=== PATIENT | male | born 1970 | race Caucasian/White ===

== ENCOUNTER 2021-03-01 12:08 | Inpatient (IN) | payer MEDICAID, SELFPAY ==
[2021-03-01] MEDS ORDERED: Midazolam HCl 2 mg/2 ml Vial ONE (12:30)
[2021-03-01] MEDS ORDERED: Propofol 1,000 MG/100 ML VIAL IV ONE ×2 (12:31→15:28)
[2021-03-01] MEDS ORDERED: Acetaminophen 650 MG Suppository ONE (12:45)
[2021-03-01] MEDS ORDERED: Ketorolac Tromethamine 30 MG/ML VIAL ONE (12:46)
[2021-03-01 13:26] LABS: #Monocytes 0.5 10x3/uL (0.0-1.1); #Neutrophils 5.7 10x3/uL (1.5-8.4); %Basophils 0.3 % (0.0-2.0); %Lymphocytes 11.7 % (18.0-47.0); %Monocytes 6.6 % (0.0-10.0); %Neutrophils 79.6 % (40.0-75.0); Mean Corpuscular HGB CONC 33.2 g/dL (32.0-36.0); Mean Corpuscular Hemoglobin 27.9 pg (27.0-33.0); Mean Platelet Volume 10.3 fl (7.4-10.4); Platelet Count 238 10x3/uL (150-450); RBC Distribution Width 13.8 % (11.5-14.5); Red Blood Cell (RBC) Count 5.38 10x6/uL (4.32-5.72); White Blood Cell (WBC) Count 7.1 10x3/uL (3.5-10.5)
[2021-03-01 13:32] LABS: SARS-CoV-2 NAA Rapid Test DETECTED (NotDetected)
[2021-03-01 13:38] LABS: Actual Bicarbonate (HCO3a) 24.4 mEq/L (22-28); Base Excess (BEa) 1.3 mEq/L (-2.0 to +3.0); CO2 Tension 34.4 mmHg (35.0-45.0); Calcium, Ionized (arterial) 0.95 mmol/L (1.12-1.30); Carboxyhemoglobin (COHb) 0.9 gm% (0.0-3.0); Hemoglobin (Hb) 14.4 g/dL (14.0-18.0); Potassium - ABG Lab 4.5 mmol/L (3.70-5.30); Puncture Site RRA; pH, Arterial 7.47 (7.35-7.45)
[2021-03-01 13:40] LABS: ALT (SGPT) 21 U/L (8-55); AST (SGOT) 44 U/L (5-34); Albumin 3.3 g/dL (3.5-5.0); Alkaline Phosphatase 75 U/L (40-110); Anion Gap 21 mmol/L (10-20); BUN (Urea Nitrogen) 24 mg/dL (8.9-20.6); Bilirubin, Total 0.6 mg/dL (0.2-1.2); Calc. Creatinine Clearance 0 mL/min (70-130); Calcium 8.9 mg/dL (7.8-10.44); Carbon Dioxide 28 mmol/L (22-29); Chloride 85 mmol/L (98-107); Globulin 3.7 g/dL (2.4-3.5); Glucose 369 mg/dL (70-105); Magnesium 2.2 mg/dL (1.6-2.6); Potassium 4.6 mmol/L (3.5-5.1); Sodium 129 mmol/L (136-145)
[2021-03-01] MEDS ORDERED: Norepinephrine 8 MG/0.9% NS 250 ML ONE (13:52)
[2021-03-01] MEDS ORDERED: Rocuronium Bromide 10 MG/ML (10ML VIAL) ONE (14:21)
[2021-03-01] MEDS ORDERED: Acetaminophen 650 MG Suppository PR PRN (15:01)
[2021-03-01] MEDS ORDERED: Ondansetron PF 4 MG/2 ML Vial IVP PRN (15:01)
[2021-03-01] MEDS ORDERED: Norepinephrine 8 MG/0.9% NS 250 ML IVPB SCH (15:15)
[2021-03-01] MEDS ORDERED: Ventilator Sedation Protocol 1 EACH FS ONE (15:19)
[2021-03-01] MEDS ORDERED: Dextrose 50% Abboject 50 ML SYRINGE SLOW IVP PRN (15:22)
[2021-03-01] MEDS ORDERED: Dextrose 5% in Water 1,000 ML IV PRN (15:22)
[2021-03-01] MEDS ORDERED: HumaLOG 300 UNITS/3 ML VIAL SC PRN ×2 (15:22)
[2021-03-01] MEDS ORDERED: Lantus 1000 UNITS/10 ML VIAL SC SCH (15:30)
[2021-03-01] MEDS ORDERED: Propofol BOLUS 1,000 MG/100 ML VIAL IV PRN (16:00)
[2021-03-01] MEDS ORDERED: Propofol 1,000 MG/100 ML VIAL IV PRN (16:00)
[2021-03-01] MEDS ORDERED: DISCONTINUE PREVIOUS NARCOTIC PAIN MEDICATIONS AND BENZODIAZEPINES FS SCH (16:00)
[2021-03-01] MEDS ORDERED: Morphine 2 MG/ML VIAL SLOW IVP PRN (16:00)
[2021-03-01] MEDS ORDERED: Fentanyl BOLUS 250 ML IVPB PRN (16:00)
[2021-03-01 16:15] LABS: Anion Gap 21 mmol/L (10-20); BUN (Urea Nitrogen) 28 mg/dL (8.9-20.6); Calc. Creatinine Clearance 0 mL/min (70-130); Calcium 7.3 mg/dL (7.8-10.44); Carbon Dioxide 22 mmol/L (22-29); Chloride 93 mmol/L (98-107); Glucose 426 mg/dL (70-105); Potassium 4.9 mmol/L (3.5-5.1); Sodium 131 mmol/L (136-145)
[2021-03-01 16:18] LABS: Lactic Acid 1.8 mmol/L (0.5-2.2)
[2021-03-01 16:34] LABS: Actual Bicarbonate (HCO3a) 22.8 mEq/L (22-28); Base Excess (BEa) -4.7 mEq/L (-2.0 to +3.0); CO2 Tension 51.6 mmHg (35.0-45.0); Calcium, Ionized (arterial) 1.07 mmol/L (1.12-1.30); Carboxyhemoglobin (COHb) 0.6 gm% (0.0-3.0); Hemoglobin (Hb) 14.7 g/dL (14.0-18.0); O2 Tension (PaO2), arterial 71.8 mmHg (80.0-100.0); Potassium - ABG Lab 4.9 mmol/L (3.70-5.30); Puncture Site LRA; pH, Arterial 7.26 (7.35-7.45)
[2021-03-01] MEDS: INSULIN REGULAR IN 0.9 % NACL 100 UNIT in Premix Bag 1 BAG IVPB SCH (16:43)
[2021-03-01] MEDS ORDERED: REMDESIVIR 200 MG in Sodium Chloride 0.9% 250 ML 210 ML IV SCH (16:45)
[2021-03-01] MEDS: Vecuronium Bromide 50 MG in Sodium Chloride 0.9% 250 ML 250 ML IV SCH (16:49)
[2021-03-01] MEDS ORDERED: TOCILIZUMAB IV SCH (17:45)
[2021-03-01] MEDS ORDERED: SODIUM CHLORIDE 0.9% IV SCH (17:45)
[2021-03-01 18:48] LABS: Anion Gap 21 mmol/L (10-20); BUN (Urea Nitrogen) 29 mg/dL (8.9-20.6); Calc. Creatinine Clearance 90 mL/min (70-130); Calcium 7.7 mg/dL (7.8-10.44); Carbon Dioxide 22 mmol/L (22-29); Chloride 95 mmol/L (98-107); Glucose 416 mg/dL (70-105); Potassium 4.3 mmol/L (3.5-5.1); Sodium 134 mmol/L (136-145)
[2021-03-01] MEDS ORDERED: Tocilizumab 800 MG in Sodium Chloride 0.9% 100 ML IV SCH (20:00)
[2021-03-01] MEDS: Famotidine/PF 20 mg/2ml Vial SLOW IVP SCH (20:58)
[2021-03-01] MEDS: Enoxaparin Sodium 120 MG/0.8 ML SYRINGE SC SCH (20:58)
[2021-03-01] MEDS: Dexamethasone 10 MG/ML VIAL SLOW IVP SCH (21:17)
[2021-03-02] MEDS: Vecuronium Bromide 50 MG in Sodium Chloride 0.9% 250 ML 250 ML IV SCH ×3 (01:34→20:37)
[2021-03-02] MEDS: INSULIN REGULAR IN 0.9 % NACL 100 UNIT in Premix Bag 1 BAG IVPB SCH (03:50)
[2021-03-02 04:38] LABS: ALT (SGPT) 24 U/L (8-55); AST (SGOT) 41 U/L (5-34); Albumin 2.9 g/dL (3.5-5.0); Alkaline Phosphatase 62 U/L (40-110); Anion Gap 12 mmol/L (10-20); BUN (Urea Nitrogen) 27 mg/dL (8.9-20.6); Bilirubin, Total 0.3 mg/dL (0.2-1.2); Calc. Creatinine Clearance 150 mL/min (70-130); Calcium 8.1 mg/dL (7.8-10.44); Carbon Dioxide 30 mmol/L (22-29); Chloride 99 mmol/L (98-107); Globulin 2.8 g/dL (2.4-3.5); Glucose 146 mg/dL (70-105); Protein, Total 5.7 g/dL (6.0-8.3); Sodium 137 mmol/L (136-145)
[2021-03-02 04:46] LABS: #Monocytes 0.4 10x3/uL (0.0-1.1); %Basophils 0.5 % (0.0-2.0); %Lymphocytes 10.6 % (18.0-47.0); %Monocytes 4.6 % (0.0-10.0); %Neutrophils 81.6 % (40.0-75.0); Hemoglobin 14.5 g/dL (13.5-17.5); Mean Corpuscular HGB CONC 33.1 g/dL (32.0-36.0); Mean Corpuscular Hemoglobin 27.7 pg (27.0-33.0); Mean Corpuscular Volume 83.7 fl (81.2-95.1); Mean Platelet Volume 9.7 fl (7.4-10.4); Platelet Count 258 10x3/uL (150-450); RBC Distribution Width 13.9 % (11.5-14.5); Red Blood Cell (RBC) Count 5.23 10x6/uL (4.32-5.72); White Blood Cell (WBC) Count 8.6 10x3/uL (3.5-10.5)
[2021-03-02 08:09] LABS: Actual Bicarbonate (HCO3a) 30.8 mEq/L (22-28); Base Excess (BEa) 4.1 mEq/L (-2.0 to +3.0); CO2 Tension 54.2 mmHg (35.0-45.0); Carboxyhemoglobin (COHb) 0.3 gm% (0.0-3.0); Hemoglobin (Hb) 14.5 g/dL (14.0-18.0); Potassium - ABG Lab 4.2 mmol/L (3.70-5.30); Puncture Site LRA; pH, Arterial 7.37 (7.35-7.45)
[2021-03-02] MEDS: Enoxaparin Sodium 120 MG/0.8 ML SYRINGE SC SCH ×2 (08:13→20:37)
[2021-03-02] MEDS: Famotidine/PF 20 mg/2ml Vial SLOW IVP SCH ×2 (08:14→20:37)
[2021-03-02] MEDS: Aspirin Chewable 81 MG TAB PO SCH (08:14)
[2021-03-02] MEDS: fentaNYL Citrate-0.9 % NaCl/PF 100 ML IVPB SCH ×2 (09:14→22:08)
[2021-03-02] MEDS ORDERED: Dexamethasone 20 MG/5 ML VIAL SLOW IVP SCH (10:00)
[2021-03-02] MEDS ORDERED: Dextrose 5% in Water 1,000 ML IV PRN (10:44)
[2021-03-02] MEDS ORDERED: Dextrose 50% Abboject 50 ML SYRINGE SLOW IVP PRN (10:44)
[2021-03-02] MEDS ORDERED: Lantus 1000 UNITS/10 ML VIAL SC SCH ×2 (10:45→21:00)
[2021-03-02] MEDS: HumaLOG 300 UNITS/3 ML VIAL SC PRN (16:41)
[2021-03-02] MEDS ORDERED: REMDESIVIR 100 MG in Sodium Chloride 0.9% 250 ML 230 ML IV SCH (16:45)
[2021-03-02 16:46] LABS: Actual Bicarbonate (HCO3a) 27.2 mEq/L (22-28); Base Excess (BEa) 0.5 mEq/L (-2.0 to +3.0); Calcium, Ionized (arterial) 1.12 mmol/L (1.12-1.30); Carboxyhemoglobin (COHb) 0.4 gm% (0.0-3.0); Hemoglobin (Hb) 14.9 g/dL (14.0-18.0); O2 Tension (PaO2), arterial 60.7 mmHg (80.0-100.0); Potassium - ABG Lab 4.8 mmol/L (3.70-5.30); Puncture Site RRA; pH, Arterial 7.34 (7.35-7.45)
[2021-03-02] MEDS: Dexamethasone 10 MG/ML VIAL SLOW IVP SCH (19:49)
[2021-03-02] MEDS: Dexamethasone 20 MG/5 ML VIAL SLOW IVP SCH (20:37)
[2021-03-03 04:06] LABS: Hemoglobin 13.9 g/dL (13.5-17.5); Mean Corpuscular HGB CONC 31.8 g/dL (32.0-36.0); Mean Corpuscular Hemoglobin 28.1 pg (27.0-33.0); Mean Corpuscular Volume 88.5 fl (81.2-95.1); Platelet Count 282 10x3/uL (150-450); RBC Distribution Width 14.2 % (11.5-14.5); Red Blood Cell (RBC) Count 4.94 10x6/uL (4.32-5.72); White Blood Cell (WBC) Count 11.3 10x3/uL (3.5-10.5)
[2021-03-03 04:19] LABS: ALT (SGPT) 26 U/L (8-55); AST (SGOT) 32 U/L (5-34); Albumin 2.7 g/dL (3.5-5.0); Alkaline Phosphatase 61 U/L (40-110); Anion Gap 15 mmol/L (10-20); BUN (Urea Nitrogen) 36 mg/dL (8.9-20.6); Bilirubin, Total 0.3 mg/dL (0.2-1.2); Calc. Creatinine Clearance 109 mL/min (70-130); Calcium 8.5 mg/dL (7.8-10.44); Carbon Dioxide 30 mmol/L (22-29); Chloride 101 mmol/L (98-107); Glucose 388 mg/dL (70-105); Potassium 5.2 mmol/L (3.5-5.1); Protein, Total 5.7 g/dL (6.0-8.3); Sodium 141 mmol/L (136-145)
[2021-03-03 04:30] LABS: MDiff Complete? YES
[2021-03-03 04:35] LABS: Band 15 % (5-11); Lymphocytes 1 % (21-51); Monocytes 5 % (0-10); Neutrophil 79 % (42-75)
[2021-03-03 04:36] LABS: Nucleated RBC 2 % (0); Toxic Granulation SLIGHT
[2021-03-03] MEDS: HumaLOG 300 UNITS/3 ML VIAL SC PRN ×2 (05:26→11:15)
[2021-03-03] MEDS: Famotidine/PF 20 mg/2ml Vial SLOW IVP SCH ×2 (08:19→20:21)
[2021-03-03] MEDS: Dexamethasone 20 MG/5 ML VIAL SLOW IVP SCH (08:19)
[2021-03-03] MEDS: Enoxaparin Sodium 120 MG/0.8 ML SYRINGE SC SCH ×2 (08:19→20:20)
[2021-03-03] MEDS: Aspirin Chewable 81 MG TAB PO SCH (08:20)
[2021-03-03 08:35] LABS: Actual Bicarbonate (HCO3a) 30.7 mEq/L (22-28); Base Excess (BEa) 4.2 mEq/L (-2.0 to +3.0); CO2 Tension 52.9 mmHg (35.0-45.0); Calcium, Ionized (arterial) 1.13 mmol/L (1.12-1.30); Carboxyhemoglobin (COHb) 0.2 gm% (0.0-3.0); Hemoglobin (Hb) 14.8 g/dL (14.0-18.0); O2 Tension (PaO2), arterial 87.3 mmHg (80.0-100.0); Puncture Site RRA; pH, Arterial 7.38 (7.35-7.45)
[2021-03-03 08:39] LABS: ALV-art Gradient 274.375 mmHg (0-20)
[2021-03-03] MEDS: fentaNYL Citrate-0.9 % NaCl/PF 100 ML IVPB SCH ×2 (08:48→15:16)
[2021-03-03] MEDS: Vecuronium Bromide 50 MG in Sodium Chloride 0.9% 250 ML 250 ML IV SCH ×2 (08:48→17:57)
[2021-03-03] MEDS ORDERED: Lantus 1000 UNITS/10 ML VIAL SC SCH (09:00)
[2021-03-03] MEDS: Cefepime 1 GM in Sodium Chloride 0.9% 100 ML IVPB SCH (11:59)
[2021-03-03] MEDS: INSULIN REGULAR IN 0.9 % NACL 100 UNIT in Premix Bag 1 BAG IVPB SCH (16:12)
[2021-03-03 16:22] LABS: Actual Bicarbonate (HCO3a) 32.9 mEq/L (22-28); Base Excess (BEa) 7.6 mEq/L (-2.0 to +3.0); CO2 Tension 47.8 mmHg (35.0-45.0); Calcium, Ionized (arterial) 1.13 mmol/L (1.12-1.30); Carboxyhemoglobin (COHb) 0.3 gm% (0.0-3.0); Hemoglobin (Hb) 14.9 g/dL (14.0-18.0); O2 Tension (PaO2), arterial 70.1 mmHg (80.0-100.0); Potassium - ABG Lab 4.8 mmol/L (3.70-5.30); Puncture Site RRA; pH, Arterial 7.46 (7.35-7.45)
[2021-03-04] MEDS: Cefepime 1 GM in Sodium Chloride 0.9% 100 ML IVPB SCH ×3 (01:17→22:18)
[2021-03-04] MEDS: Vecuronium Bromide 50 MG in Sodium Chloride 0.9% 250 ML 250 ML IV SCH ×2 (02:59→17:45)
[2021-03-04] MEDS: INSULIN REGULAR IN 0.9 % NACL 100 UNIT in Premix Bag 1 BAG IVPB SCH (03:07)
[2021-03-04] MEDS: fentaNYL Citrate-0.9 % NaCl/PF 100 ML IVPB SCH ×2 (03:36→13:01)
[2021-03-04 05:53] LABS: ALT (SGPT) 27 U/L (8-55); AST (SGOT) 42 U/L (5-34); Albumin 2.8 g/dL (3.5-5.0); Alkaline Phosphatase 60 U/L (40-110); Anion Gap 11 mmol/L (10-20); BUN (Urea Nitrogen) 38 mg/dL (8.9-20.6); Bilirubin, Total 0.4 mg/dL (0.2-1.2); Calc. Creatinine Clearance 102 mL/min (70-130); Calcium 8.6 mg/dL (7.8-10.44); Carbon Dioxide 34 mmol/L (22-29); Chloride 112 mmol/L (98-107); Globulin 2.3 g/dL (2.4-3.5); Glucose 131 mg/dL (70-105); Potassium 4.7 mmol/L (3.5-5.1); Protein, Total 5.1 g/dL (6.0-8.3); Sodium 152 mmol/L (136-145)
[2021-03-04] MEDS: Aspirin Chewable 81 MG TAB PO SCH (08:06)
[2021-03-04] MEDS: Dexamethasone 20 MG/5 ML VIAL SLOW IVP SCH (08:08)
[2021-03-04] MEDS: Acetaminophen 325 MG TAB PO PRN ×2 (08:08→12:53)
[2021-03-04] MEDS: Enoxaparin Sodium 120 MG/0.8 ML SYRINGE SC SCH ×2 (08:09→20:14)
[2021-03-04 08:13] LABS: Actual Bicarbonate (HCO3a) 31.3 mEq/L (22-28); Base Excess (BEa) 7.5 mEq/L (-2.0 to +3.0); Calcium, Ionized (arterial) 1.11 mmol/L (1.12-1.30); Carboxyhemoglobin (COHb) 0.7 gm% (0.0-3.0); Hemoglobin (Hb) 14.9 g/dL (14.0-18.0); O2 Tension (PaO2), arterial 51.1 mmHg (80.0-100.0); Potassium - ABG Lab 4.5 mmol/L (3.70-5.30); Puncture Site RRA
[2021-03-04] MEDS: Famotidine/PF 20 mg/2ml Vial SLOW IVP SCH ×2 (09:00→20:14)
[2021-03-04] MEDS ORDERED: Furosemide 40 MG/4 ML VIAL SLOW IVP SCH (12:00)
[2021-03-05] MEDS: fentaNYL Citrate-0.9 % NaCl/PF 100 ML IVPB SCH ×3 (00:15→22:03)
[2021-03-05] MEDS: Vecuronium Bromide 50 MG in Sodium Chloride 0.9% 250 ML 250 ML IV SCH ×2 (00:16→09:16)
[2021-03-05] MEDS: INSULIN REGULAR IN 0.9 % NACL 100 UNIT in Premix Bag 1 BAG IVPB SCH (01:09)
[2021-03-05 05:27] LABS: ALT (SGPT) 23 U/L (8-55); AST (SGOT) 28 U/L (5-34); Albumin 2.8 g/dL (3.5-5.0); Alkaline Phosphatase 61 U/L (40-110); Anion Gap 14 mmol/L (10-20); BUN (Urea Nitrogen) 42 mg/dL (8.9-20.6); Bilirubin, Total 0.5 mg/dL (0.2-1.2); Calc. Creatinine Clearance 129 mL/min (70-130); Calcium 8.5 mg/dL (7.8-10.44); Carbon Dioxide 32 mmol/L (22-29); Chloride 108 mmol/L (98-107); Globulin 2.6 g/dL (2.4-3.5); Glucose 177 mg/dL (70-105); Potassium 4.5 mmol/L (3.5-5.1); Protein, Total 5.4 g/dL (6.0-8.3); Sodium 149 mmol/L (136-145)
[2021-03-05 08:09] LABS: Actual Bicarbonate (HCO3a) 34.7 mEq/L (22-28); CO2 Tension 51.2 mmHg (35.0-45.0); Calcium, Ionized (arterial) 1.16 mmol/L (1.12-1.30); Carboxyhemoglobin (COHb) 0.3 gm% (0.0-3.0); Hemoglobin (Hb) 14.5 g/dL (14.0-18.0); O2 Tension (PaO2), arterial 57.9 mmHg (80.0-100.0); Potassium - ABG Lab 4.3 mmol/L (3.70-5.30); Puncture Site RRA; pH, Arterial 7.45 (7.35-7.45)
[2021-03-05] MEDS: Famotidine/PF 20 mg/2ml Vial SLOW IVP SCH ×2 (08:34→20:39)
[2021-03-05] MEDS: Dexamethasone 20 MG/5 ML VIAL SLOW IVP SCH (08:34)
[2021-03-05] MEDS: Aspirin Chewable 81 MG TAB PO SCH (08:34)
[2021-03-05] MEDS: Enoxaparin Sodium 120 MG/0.8 ML SYRINGE SC SCH ×2 (08:35→20:39)
[2021-03-05] MEDS: Cefepime 1 GM in Sodium Chloride 0.9% 100 ML IVPB SCH (11:42)
[2021-03-05] MEDS ORDERED: Dextrose 5% in Water 1,000 ML IV PRN (13:00)
[2021-03-05] MEDS ORDERED: Dextrose 50% Abboject 50 ML SYRINGE IVP PRN (13:00)
[2021-03-05] MEDS: HumaLOG 300 UNITS/3 ML VIAL SC PRN ×3 (13:26→20:39)
[2021-03-05] MEDS: Acetaminophen 325 MG TAB PO PRN (20:46)
[2021-03-06] MEDS: Cefepime 1 GM in Sodium Chloride 0.9% 100 ML IVPB SCH ×2 (00:12→10:55)
[2021-03-06] MEDS: HumaLOG 300 UNITS/3 ML VIAL SC PRN ×6 (00:21→20:27)
[2021-03-06] MEDS: Acetaminophen 325 MG TAB PO PRN ×4 (04:49→20:29)
[2021-03-06 05:10] LABS: #Monocytes 0.8 10x3/uL (0.0-1.1); #Neutrophils 7.1 10x3/uL (1.5-8.4); %Basophils 0.3 % (0.0-2.0); %Monocytes 8.6 % (0.0-10.0); %Neutrophils 76.3 % (40.0-75.0); Hemoglobin 14.2 g/dL (13.5-17.5); Mean Corpuscular HGB CONC 30.4 g/dL (32.0-36.0); Mean Corpuscular Hemoglobin 28.3 pg (27.0-33.0); Mean Corpuscular Volume 93.2 fl (81.2-95.1); Platelet Count 247 10x3/uL (150-450); RBC Distribution Width 14.7 % (11.5-14.5); Red Blood Cell (RBC) Count 5.01 10x6/uL (4.32-5.72); White Blood Cell (WBC) Count 9.3 10x3/uL (3.5-10.5)
[2021-03-06 05:12] LABS: ALT (SGPT) 22 U/L (8-55); AST (SGOT) 28 U/L (5-34); Albumin 2.8 g/dL (3.5-5.0); Alkaline Phosphatase 58 U/L (40-110); Anion Gap 12 mmol/L (10-20); BUN (Urea Nitrogen) 39 mg/dL (8.9-20.6); Bilirubin, Total 0.6 mg/dL (0.2-1.2); Calc. Creatinine Clearance 113 mL/min (70-130); Calcium 9.2 mg/dL (7.8-10.44); Carbon Dioxide 37 mmol/L (22-29); Chloride 105 mmol/L (98-107); Globulin 2.8 g/dL (2.4-3.5); Glucose 277 mg/dL (70-105); Potassium 4.7 mmol/L (3.5-5.1); Protein, Total 5.6 g/dL (6.0-8.3); Sodium 149 mmol/L (136-145)
[2021-03-06] MEDS: fentaNYL Citrate-0.9 % NaCl/PF 100 ML IVPB SCH ×2 (06:00→12:42)
[2021-03-06] MEDS: Enoxaparin Sodium 120 MG/0.8 ML SYRINGE SC SCH ×2 (08:07→20:13)
[2021-03-06] MEDS: Dexamethasone 20 MG/5 ML VIAL SLOW IVP SCH (08:08)
[2021-03-06] MEDS: Aspirin Chewable 81 MG TAB PO SCH (08:08)
[2021-03-06] MEDS: Famotidine/PF 20 mg/2ml Vial SLOW IVP SCH ×2 (08:08→20:14)
[2021-03-06 08:25] LABS: Actual Bicarbonate (HCO3a) 36.5 mEq/L (22-28); Base Excess (BEa) 11.1 mEq/L (-2.0 to +3.0); Calcium, Ionized (arterial) 1.11 mmol/L (1.12-1.30); Hemoglobin (Hb) 15.2 g/dL (14.0-18.0); O2 Tension (PaO2), arterial 49.2 mmHg (80.0-100.0); Potassium - ABG Lab 4.5 mmol/L (3.70-5.30); Puncture Site LBA; Temperature 39.2 C; pH, Arterial 7.48 (7.35-7.45)
[2021-03-06] MEDS ORDERED: Piperacillin/Tazobactam 3.375 GM in Sodium Chloride 0.9% 100 ML IVPB SCH (14:15)
[2021-03-06] MEDS ORDERED: VANCOMYCIN 2 GRAM/400 ML BAG 2 GM in Premix Bag 1 BAG IVPB SCH (15:00)
[2021-03-06] MEDS: Micafungin 100 MG in Sodium Chloride 0.9% 100 ML IVPB SCH (16:42)
[2021-03-06] MEDS: Piperacillin/Tazobactam 3.375 GM in Sodium Chloride 0.9% 100 ML IVPB SCH (17:33)
[2021-03-07] MEDS: Acetaminophen 325 MG TAB PO PRN ×5 (00:26→20:39)
[2021-03-07] MEDS: HumaLOG 300 UNITS/3 ML VIAL SC PRN ×6 (00:28→20:40)
[2021-03-07] MEDS: Piperacillin/Tazobactam 3.375 GM in Sodium Chloride 0.9% 100 ML IVPB SCH ×3 (01:59→17:30)
[2021-03-07] MEDS: VANCOMYCIN 1.25 GM/250 ML BAG 1.25 GM in Premix Bag 1 BAG IVPB SCH ×2 (01:59→15:31)
[2021-03-07] MEDS: fentaNYL Citrate-0.9 % NaCl/PF 100 ML IVPB SCH ×2 (03:34→23:21)
[2021-03-07 04:48] LABS: #Monocytes 0.7 10x3/uL (0.0-1.1); #Neutrophils 6.3 10x3/uL (1.5-8.4); %Basophils 0.1 % (0.0-2.0); %Eosinophils 0.1 % (0.0-6.0); %Lymphocytes 15.5 % (18.0-47.0); %Monocytes 8.5 % (0.0-10.0); %Neutrophils 74.6 % (40.0-75.0); Hemoglobin 13.4 g/dL (13.5-17.5); Mean Corpuscular HGB CONC 30.2 g/dL (32.0-36.0); Mean Corpuscular Volume 92.7 fl (81.2-95.1); Mean Platelet Volume 9.6 fl (7.4-10.4); Platelet Count 236 10x3/uL (150-450); Red Blood Cell (RBC) Count 4.78 10x6/uL (4.32-5.72); White Blood Cell (WBC) Count 8.5 10x3/uL (3.5-10.5)
[2021-03-07 05:04] LABS: ALT (SGPT) 20 U/L (8-55); AST (SGOT) 24 U/L (5-34); Albumin 2.8 g/dL (3.5-5.0); Alkaline Phosphatase 49 U/L (40-110); Anion Gap 10 mmol/L (10-20); BUN (Urea Nitrogen) 35 mg/dL (8.9-20.6); Bilirubin, Total 0.6 mg/dL (0.2-1.2); Calc. Creatinine Clearance 127 mL/min (70-130); Calcium 8.7 mg/dL (7.8-10.44); Carbon Dioxide 37 mmol/L (22-29); Chloride 104 mmol/L (98-107); Globulin 2.3 g/dL (2.4-3.5); Glucose 259 mg/dL (70-105); Potassium 4.3 mmol/L (3.5-5.1); Protein, Total 5.1 g/dL (6.0-8.3); Sodium 147 mmol/L (136-145)
[2021-03-07 08:41] LABS: ALV-art Gradient 156.775 mmHg (0-20); Actual Bicarbonate (HCO3a) 38.4 mEq/L (22-28); Base Excess (BEa) 11.5 mEq/L (-2.0 to +3.0); CO2 Tension 59.3 mmHg (35.0-45.0); Calcium, Ionized (arterial) 1.14 mmol/L (1.12-1.30); Carboxyhemoglobin (COHb) 0.9 gm% (0.0-3.0); Hemoglobin (Hb) 14.4 g/dL (14.0-18.0); O2 Tension (PaO2), arterial 54.3 mmHg (80.0-100.0); Potassium - ABG Lab 4.1 mmol/L (3.70-5.30); Puncture Site RRA; pH, Arterial 7.43 (7.35-7.45)
[2021-03-07] MEDS: Dexamethasone 20 MG/5 ML VIAL SLOW IVP SCH (08:47)
[2021-03-07] MEDS: Famotidine/PF 20 mg/2ml Vial SLOW IVP SCH ×2 (08:47→20:41)
[2021-03-07] MEDS: Enoxaparin Sodium 120 MG/0.8 ML SYRINGE SC SCH ×2 (08:48→20:40)
[2021-03-07] MEDS: Lantus 1000 UNITS/10 ML VIAL SC SCH ×2 (08:49→20:40)
[2021-03-07] MEDS: Aspirin Chewable 81 MG TAB PO SCH (08:49)
[2021-03-07] MEDS ORDERED: Furosemide 40 MG/4 ML VIAL ONE (10:13)
[2021-03-07] MEDS: Micafungin 100 MG in Sodium Chloride 0.9% 100 ML IVPB SCH (16:23)
[2021-03-07] MEDS: Senokot S 8.6-50 MG TAB PO SCH (20:41)
[2021-03-08] MEDS: HumaLOG 300 UNITS/3 ML VIAL SC PRN ×6 (00:25→20:44)
[2021-03-08] MEDS: Acetaminophen 325 MG TAB PO PRN ×3 (00:26→16:20)
[2021-03-08 03:02] LABS: #Eosinphils 0.1 10x3/uL (0.0-0.5); #Monocytes 0.6 10x3/uL (0.0-1.1); #Neutrophils 5.6 10x3/uL (1.5-8.4); %Basophils 0.1 % (0.0-2.0); %Eosinophils 1.1 % (0.0-6.0); %Lymphocytes 16.3 % (18.0-47.0); %Neutrophils 73.6 % (40.0-75.0); Hemoglobin 13.1 g/dL (13.5-17.5); Mean Corpuscular HGB CONC 30.3 g/dL (32.0-36.0); Mean Corpuscular Hemoglobin 27.9 pg (27.0-33.0); Mean Corpuscular Volume 92.1 fl (81.2-95.1); Mean Platelet Volume 9.4 fl (7.4-10.4); Platelet Count 212 10x3/uL (150-450); RBC Distribution Width 14.6 % (11.5-14.5); Red Blood Cell (RBC) Count 4.69 10x6/uL (4.32-5.72); White Blood Cell (WBC) Count 7.6 10x3/uL (3.5-10.5)
[2021-03-08 03:17] LABS: Vancomycin, Trough 7.7 ug/mL
[2021-03-08 03:25] LABS: Anion Gap 12 mmol/L (10-20); BUN (Urea Nitrogen) 37 mg/dL (8.9-20.6); Calc. Creatinine Clearance 132 mL/min (70-130); Calcium 8.9 mg/dL (7.8-10.44); Carbon Dioxide 35 mmol/L (22-29); Chloride 102 mmol/L (98-107); Glucose 260 mg/dL (70-105); Potassium 3.9 mmol/L (3.5-5.1); Sodium 145 mmol/L (136-145)
[2021-03-08] MEDS: Piperacillin/Tazobactam 3.375 GM in Sodium Chloride 0.9% 100 ML IVPB SCH ×3 (03:36→17:35)
[2021-03-08] MEDS: Vancomycin 1.5 GRAM/300 ML BAG 1.5 GM in Premix Bag 1 BAG IVPB SCH ×2 (03:37→16:19)
[2021-03-08] MEDS: VANCOMYCIN 1.25 GM/250 ML BAG 1.25 GM in Premix Bag 1 BAG IVPB SCH (04:01)
[2021-03-08 07:43] LABS: Actual Bicarbonate (HCO3a) 34.4 mEq/L (22-28); Base Excess (BEa) 8.3 mEq/L (-2.0 to +3.0); CO2 Tension 53.5 mmHg (35.0-45.0); Calcium, Ionized (arterial) 1.14 mmol/L (1.12-1.30); Carboxyhemoglobin (COHb) 0.7 gm% (0.0-3.0); Hemoglobin (Hb) 14.2 g/dL (14.0-18.0); O2 Tension (PaO2), arterial 59.4 mmHg (80.0-100.0); Potassium - ABG Lab 3.7 mmol/L (3.70-5.30); Puncture Site RRA; pH, Arterial 7.43 (7.35-7.45)
[2021-03-08 07:46] LABS: ALV-art Gradient 230.225 mmHg (0-20)
[2021-03-08] MEDS: fentaNYL Citrate-0.9 % NaCl/PF 100 ML IVPB SCH ×2 (09:05→18:05)
[2021-03-08] MEDS: Polyethylene Glycol 3350 17 GM Packet PO SCH (09:13)
[2021-03-08] MEDS: Lantus 1000 UNITS/10 ML VIAL SC SCH ×2 (09:13→20:42)
[2021-03-08] MEDS: Famotidine/PF 20 mg/2ml Vial SLOW IVP SCH ×2 (09:13→20:42)
[2021-03-08] MEDS: Dexamethasone 20 MG/5 ML VIAL SLOW IVP SCH (09:13)
[2021-03-08] MEDS: Senokot S 8.6-50 MG TAB PO SCH ×2 (09:13→20:41)
[2021-03-08] MEDS: Aspirin Chewable 81 MG TAB PO SCH (09:13)
[2021-03-08] MEDS: Enoxaparin Sodium 120 MG/0.8 ML SYRINGE SC SCH ×2 (10:16→20:41)
[2021-03-08] MEDS: Micafungin 100 MG in Sodium Chloride 0.9% 100 ML IVPB SCH (17:34)
[2021-03-08 19:19] LABS: Bilirubin Neg (Negative); Blood, Urine 250 (Negative); Clarity Bloody (Clear); Glucose, Urine (Dipstick) >=1000 mg/dL (Negative); Ketone, Urine 5 mg/dL (Negative); Leukocyte 100 (Negative); Nitrite Positive (Negative); Protein, Urine (Dipstick) 100 mg/dl (Neg-Trace)
[2021-03-08 19:23] LABS: RBC/HPF Greater than 50 HPF (0-3); Squamous Epithelial 0-3 HPF (0-3)
[2021-03-08 19:24] LABS: Bacteria/HPF Rare-Few HPF (None Seen)
[2021-03-08 19:25] LABS: Urine Culture Reflex Yes Yes
[2021-03-08 19:38] LABS: Anion Gap 13 mmol/L (10-20); BUN (Urea Nitrogen) 34 mg/dL (8.9-20.6); Calc. Creatinine Clearance 151 mL/min (70-130); Calcium 8.8 mg/dL (7.8-10.44); Carbon Dioxide 30 mmol/L (22-29); Chloride 104 mmol/L (98-107); Glucose 269 mg/dL (70-105); Potassium 4.7 mmol/L (3.5-5.1); Sodium 142 mmol/L (136-145)
[2021-03-09] MEDS: HumaLOG 300 UNITS/3 ML VIAL SC PRN ×7 (00:19→20:45)
[2021-03-09] MEDS: fentaNYL Citrate-0.9 % NaCl/PF 100 ML IVPB SCH ×3 (03:14→21:38)
[2021-03-09] MEDS: Vancomycin 1.5 GRAM/300 ML BAG 1.5 GM in Premix Bag 1 BAG IVPB SCH (03:14)
[2021-03-09] MEDS: Piperacillin/Tazobactam 3.375 GM in Sodium Chloride 0.9% 100 ML IVPB SCH ×2 (03:14→10:41)
[2021-03-09 04:43] LABS: #Eosinphils 0.2 10x3/uL (0.0-0.5); #Monocytes 0.6 10x3/uL (0.0-1.1); #Neutrophils 4.4 10x3/uL (1.5-8.4); %Basophils 0.1 % (0.0-2.0); %Eosinophils 2.8 % (0.0-6.0); %Lymphocytes 25.4 % (18.0-47.0); %Monocytes 8.1 % (0.0-10.0); %Neutrophils 62.9 % (40.0-75.0); Hemoglobin 12.9 g/dL (13.5-17.5); Mean Corpuscular HGB CONC 30.6 g/dL (32.0-36.0); Mean Corpuscular Hemoglobin 28.4 pg (27.0-33.0); Mean Platelet Volume 10.3 fl (7.4-10.4); Platelet Count 213 10x3/uL (150-450); RBC Distribution Width 14.5 % (11.5-14.5); Red Blood Cell (RBC) Count 4.54 10x6/uL (4.32-5.72); White Blood Cell (WBC) Count 7.1 10x3/uL (3.5-10.5)
[2021-03-09 04:49] LABS: Anion Gap 11 mmol/L (10-20); BUN (Urea Nitrogen) 32 mg/dL (8.9-20.6); Calc. Creatinine Clearance 147 mL/min (70-130); Carbon Dioxide 32 mmol/L (22-29); Chloride 103 mmol/L (98-107); Potassium 4.3 mmol/L (3.5-5.1); Sodium 142 mmol/L (136-145)
[2021-03-09 04:50] LABS: Calcium 8.9 mg/dL (7.8-10.44)
[2021-03-09 05:10] LABS: Glucose 199 mg/dL (70-105)
[2021-03-09] MEDS: Lantus 1000 UNITS/10 ML VIAL SC SCH ×2 (07:46→20:44)
[2021-03-09] MEDS: Aspirin Chewable 81 MG TAB PO SCH (08:06)
[2021-03-09] MEDS: Enoxaparin Sodium 120 MG/0.8 ML SYRINGE SC SCH ×2 (08:07→20:44)
[2021-03-09] MEDS: Dexamethasone 20 MG/5 ML VIAL SLOW IVP SCH (08:07)
[2021-03-09] MEDS: Senokot S 8.6-50 MG TAB PO SCH ×2 (08:07→20:44)
[2021-03-09] MEDS: Famotidine/PF 20 mg/2ml Vial SLOW IVP SCH ×2 (08:07→20:44)
[2021-03-09] MEDS: Polyethylene Glycol 3350 17 GM Packet PO SCH (08:07)
[2021-03-09 08:52] LABS: Actual Bicarbonate (HCO3a) 30.9 mEq/L (22-28); Base Excess (BEa) 3.5 mEq/L (-2.0 to +3.0); CO2 Tension 58.8 mmHg (35.0-45.0); Calcium, Ionized (arterial) 1.15 mmol/L (1.12-1.30); Hemoglobin (Hb) 14.3 g/dL (14.0-18.0); O2 Tension (PaO2), arterial 62.9 mmHg (80.0-100.0); Potassium - ABG Lab 3.8 mmol/L (3.70-5.30); Puncture Site RRA; pH, Arterial 7.34 (7.35-7.45)
[2021-03-09] MEDS: Acetaminophen 325 MG TAB PO PRN (12:54)
[2021-03-09] MEDS: Cefepime 2 GM in Sodium Chloride 0.9% 100 ML IVPB SCH (17:13)
[2021-03-09] MEDS: Micafungin 100 MG in Sodium Chloride 0.9% 100 ML IVPB SCH (17:13)
[2021-03-09 21:02] LABS: Mean Corpuscular HGB CONC 31.2 g/dL (32.0-36.0); Mean Corpuscular Hemoglobin 27.9 pg (27.0-33.0); Mean Corpuscular Volume 89.6 fl (81.2-95.1); Mean Platelet Volume 9.8 fl (7.4-10.4); Platelet Count 257 10x3/uL (150-450); RBC Distribution Width 14.4 % (11.5-14.5); Red Blood Cell (RBC) Count 5.01 10x6/uL (4.32-5.72); White Blood Cell (WBC) Count 10.4 10x3/uL (3.5-10.5)
[2021-03-10] MEDS: HumaLOG 300 UNITS/3 ML VIAL SC PRN ×6 (00:42→21:01)
[2021-03-10 04:25] LABS: Anion Gap 11 mmol/L (10-20); BUN (Urea Nitrogen) 32 mg/dL (8.9-20.6); Calc. Creatinine Clearance 172 mL/min (70-130); Calcium 8.9 mg/dL (7.8-10.44); Carbon Dioxide 30 mmol/L (22-29); Chloride 103 mmol/L (98-107); Glucose 232 mg/dL (70-105); Potassium 4.1 mmol/L (3.5-5.1); Sodium 140 mmol/L (136-145)
[2021-03-10] MEDS: Cefepime 2 GM in Sodium Chloride 0.9% 100 ML IVPB SCH ×2 (05:00→15:06)
[2021-03-10 08:00] LABS: Actual Bicarbonate (HCO3a) 31.5 mEq/L (22-28); CO2 Tension 49.3 mmHg (35.0-45.0); Calcium, Ionized (arterial) 1.16 mmol/L (1.12-1.30); Hemoglobin (Hb) 13.7 g/dL (14.0-18.0); O2 Tension (PaO2), arterial 58.3 mmHg (80.0-100.0); Potassium - ABG Lab 3.8 mmol/L (3.70-5.30); Puncture Site RRA; pH, Arterial 7.42 (7.35-7.45)
[2021-03-10] MEDS: Lantus 1000 UNITS/10 ML VIAL SC SCH ×2 (08:01→19:39)
[2021-03-10] MEDS: Aspirin Chewable 81 MG TAB PO SCH (08:02)
[2021-03-10] MEDS: Famotidine/PF 20 mg/2ml Vial SLOW IVP SCH ×2 (08:02→19:39)
[2021-03-10] MEDS: Enoxaparin Sodium 120 MG/0.8 ML SYRINGE SC SCH (08:02)
[2021-03-10] MEDS: Senokot S 8.6-50 MG TAB PO SCH ×2 (08:02→19:40)
[2021-03-10] MEDS: Polyethylene Glycol 3350 17 GM Packet PO SCH (08:03)
[2021-03-10] MEDS: Dexamethasone 20 MG/5 ML VIAL SLOW IVP SCH (08:03)
[2021-03-10 08:05] LABS: ALV-art Gradient 165.275 mmHg (0-20)
[2021-03-10] MEDS: fentaNYL Citrate-0.9 % NaCl/PF 100 ML IVPB SCH ×2 (08:45→15:35)
[2021-03-10] MEDS ORDERED: Docusate Sodium 100 MG/10 ML UDCUP PO PRN (09:09)
[2021-03-10 10:32] LABS: Hemoglobin 12.7 g/dL (13.5-17.5); Mean Corpuscular HGB CONC 31.5 g/dL (32.0-36.0); Mean Corpuscular Volume 88.8 fl (81.2-95.1); Mean Platelet Volume 10.2 fl (7.4-10.4); Platelet Count 221 10x3/uL (150-450); RBC Distribution Width 14.7 % (11.5-14.5); Red Blood Cell (RBC) Count 4.54 10x6/uL (4.32-5.72); White Blood Cell (WBC) Count 6.4 10x3/uL (3.5-10.5)
[2021-03-10 10:44] LABS: Anion Gap 12 mmol/L (10-20); BUN (Urea Nitrogen) 31 mg/dL (8.9-20.6); Calc. Creatinine Clearance 184 mL/min (70-130); Calcium 8.8 mg/dL (7.8-10.44); Carbon Dioxide 28 mmol/L (22-29); Chloride 104 mmol/L (98-107); Glucose 228 mg/dL (70-105); Potassium 4.1 mmol/L (3.5-5.1); Sodium 140 mmol/L (136-145)
[2021-03-10] MEDS: Dexmedetomidine In 0.9 % NaCl 100 ML IVPB SCH ×3 (12:06→19:40)
[2021-03-10] MEDS: Lorazepam 2 MG/ML VIAL SLOW IVP PRN (14:32)
[2021-03-10 20:08] LABS: Hemoglobin 13.5 g/dL (13.5-17.5); Mean Corpuscular HGB CONC 32.3 g/dL (32.0-36.0); Mean Corpuscular Hemoglobin 28.5 pg (27.0-33.0); Mean Corpuscular Volume 88.4 fl (81.2-95.1); Mean Platelet Volume 10.3 fl (7.4-10.4); Platelet Count 225 10x3/uL (150-450); RBC Distribution Width 14.2 % (11.5-14.5); Red Blood Cell (RBC) Count 4.73 10x6/uL (4.32-5.72); White Blood Cell (WBC) Count 8.2 10x3/uL (3.5-10.5)
[2021-03-10 20:21] LABS: Anion Gap 12 mmol/L (10-20); BUN (Urea Nitrogen) 30 mg/dL (8.9-20.6); Calc. Creatinine Clearance 184 mL/min (70-130); Calcium 9.2 mg/dL (7.8-10.44); Carbon Dioxide 30 mmol/L (22-29); Chloride 103 mmol/L (98-107); Glucose 227 mg/dL (70-105); Potassium 4.8 mmol/L (3.5-5.1); Sodium 140 mmol/L (136-145)
[2021-03-11] MEDS: HumaLOG 300 UNITS/3 ML VIAL SC PRN ×5 (00:35→15:44)
[2021-03-11] MEDS: Dexmedetomidine In 0.9 % NaCl 100 ML IVPB SCH ×6 (01:39→20:39)
[2021-03-11 03:59] LABS: Anion Gap 11 mmol/L (10-20); BUN (Urea Nitrogen) 30 mg/dL (8.9-20.6); Calc. Creatinine Clearance 175 mL/min (70-130); Calcium 9.3 mg/dL (7.8-10.44); Carbon Dioxide 29 mmol/L (22-29); Chloride 103 mmol/L (98-107); Glucose 239 mg/dL (70-105); Potassium 4.3 mmol/L (3.5-5.1); Sodium 139 mmol/L (136-145)
[2021-03-11] MEDS: Cefepime 2 GM in Sodium Chloride 0.9% 100 ML IVPB SCH ×2 (04:13→15:45)
[2021-03-11 08:11] LABS: Actual Bicarbonate (HCO3a) 29.7 mEq/L (22-28); Base Excess (BEa) 4.9 mEq/L (-2.0 to +3.0); CO2 Tension 44.5 mmHg (35.0-45.0); Calcium, Ionized (arterial) 1.17 mmol/L (1.12-1.30); Carboxyhemoglobin (COHb) 0.8 gm% (0.0-3.0); Hemoglobin (Hb) 13.9 g/dL (14.0-18.0); O2 Tension (PaO2), arterial 45.6 mmHg (80.0-100.0); Potassium - ABG Lab 3.9 mmol/L (3.70-5.30); Puncture Site RRA; pH, Arterial 7.44 (7.35-7.45)
[2021-03-11 08:13] LABS: ALV-art Gradient 183.975 mmHg (0-20)
[2021-03-11] MEDS: Senokot S 8.6-50 MG TAB PO SCH ×2 (08:13→20:39)
[2021-03-11] MEDS: Aspirin Chewable 81 MG TAB PO SCH (08:15)
[2021-03-11] MEDS: Famotidine/PF 20 mg/2ml Vial SLOW IVP SCH ×2 (08:15→20:38)
[2021-03-11] MEDS: Dexamethasone 20 MG/5 ML VIAL SLOW IVP SCH (08:15)
[2021-03-11] MEDS: Polyethylene Glycol 3350 17 GM Packet PO SCH (08:15)
[2021-03-11] MEDS: Lantus 1000 UNITS/10 ML VIAL SC SCH ×2 (08:17→20:38)
[2021-03-11] MEDS ORDERED: Furosemide 40 MG/4 ML VIAL SLOW IVP SCH (10:30)
[2021-03-11] MEDS: fentaNYL Citrate-0.9 % NaCl/PF 100 ML IVPB SCH (13:47)
[2021-03-11] MEDS: oxyCODONE 5 MG TAB PO SCH ×3 (14:42→20:40)
[2021-03-11] MEDS: clonazePAM 0.5 MG TAB PO SCH ×2 (14:43→20:38)
[2021-03-12] MEDS: oxyCODONE 5 MG TAB PO SCH ×4 (00:37→21:02)
[2021-03-12] MEDS: HumaLOG 300 UNITS/3 ML VIAL SC PRN ×5 (00:56→21:15)
[2021-03-12] MEDS: Dexmedetomidine In 0.9 % NaCl 100 ML IVPB SCH ×5 (04:06→22:08)
[2021-03-12] MEDS: Cefepime 2 GM in Sodium Chloride 0.9% 100 ML IVPB SCH ×2 (04:39→15:13)
[2021-03-12 05:23] LABS: Hemoglobin 13.7 g/dL (13.5-17.5); Mean Corpuscular HGB CONC 32.2 g/dL (32.0-36.0); Mean Corpuscular Hemoglobin 28.7 pg (27.0-33.0); Mean Corpuscular Volume 88.9 fl (81.2-95.1); Mean Platelet Volume 10.7 fl (7.4-10.4); Platelet Count 218 10x3/uL (150-450); RBC Distribution Width 14.9 % (11.5-14.5); Red Blood Cell (RBC) Count 4.78 10x6/uL (4.32-5.72)
[2021-03-12 05:27] LABS: Anion Gap 12 mmol/L (10-20); BUN (Urea Nitrogen) 34 mg/dL (8.9-20.6); Calc. Creatinine Clearance 142 mL/min (70-130); Calcium 9.4 mg/dL (7.8-10.44); Carbon Dioxide 31 mmol/L (22-29); Chloride 100 mmol/L (98-107); Potassium 4.3 mmol/L (3.5-5.1); Sodium 139 mmol/L (136-145)
[2021-03-12 05:33] LABS: Glucose 228 mg/dL (70-105)
[2021-03-12 07:29] LABS: Band 11 % (5-11); Eosinophils 2 % (0-10); Lymphocytes 12 % (21-51); Monocytes 1 % (0-10); Reactive Lymphocytes 12 % (0-10)
[2021-03-12 07:30] LABS: Neutrophil 61 % (42-75)
[2021-03-12] MEDS: Aspirin Chewable 81 MG TAB PO SCH (07:30)
[2021-03-12 07:31] LABS: Anisocytosis SLIGHT = 6-15 cells (100X) (0-5/hpf); Microcytosis SLIGHT = 6-15 cells (100X) (0-5/hpf); Polychromasia SLIGHT = 2-3 cells (100X) (0-2/hpf)
[2021-03-12] MEDS: Dexamethasone 20 MG/5 ML VIAL SLOW IVP SCH (07:31)
[2021-03-12 07:32] LABS: Dohle Bodies SLIGHT; Large Platelets SLIGHT; Platelet Morphology Comment Appears Adequate; Toxic Granulation SLIGHT
[2021-03-12] MEDS: Famotidine/PF 20 mg/2ml Vial SLOW IVP SCH ×2 (07:32→20:59)
[2021-03-12] MEDS: Polyethylene Glycol 3350 17 GM Packet PO SCH (07:32)
[2021-03-12] MEDS: Senokot S 8.6-50 MG TAB PO SCH ×2 (07:32→21:04)
[2021-03-12 07:33] LABS: MDiff Complete? YES
[2021-03-12] MEDS: Lantus 1000 UNITS/10 ML VIAL SC SCH ×2 (07:36→21:01)
[2021-03-12] MEDS: clonazePAM 0.5 MG TAB PO SCH (07:39)
[2021-03-12] MEDS: Acetaminophen 325 MG TAB PO PRN ×3 (08:12→22:11)
[2021-03-12 08:47] LABS: Actual Bicarbonate (HCO3a) 29.9 mEq/L (22-28); CO2 Tension 45.1 mmHg (35.0-45.0); Calcium, Ionized (arterial) 1.17 mmol/L (1.12-1.30); Carboxyhemoglobin (COHb) 0.4 gm% (0.0-3.0); Hemoglobin (Hb) 14.2 g/dL (14.0-18.0); O2 Tension (PaO2), arterial 53.8 mmHg (80.0-100.0); Potassium - ABG Lab 4.2 mmol/L (3.70-5.30); Puncture Site RBA; pH, Arterial 7.44 (7.35-7.45)
[2021-03-12 08:51] LABS: ALV-art Gradient 246.325 mmHg (0-20)
[2021-03-12 13:39] LABS: Hemoglobin 13.4 g/dL (13.5-17.5); Mean Corpuscular HGB CONC 31.8 g/dL (32.0-36.0); Mean Corpuscular Hemoglobin 28.9 pg (27.0-33.0); Mean Corpuscular Volume 90.9 fl (81.2-95.1); Mean Platelet Volume 10.5 fl (7.4-10.4); Platelet Count 225 10x3/uL (150-450); RBC Distribution Width 14.7 % (11.5-14.5); Red Blood Cell (RBC) Count 4.64 10x6/uL (4.32-5.72); White Blood Cell (WBC) Count 9.4 10x3/uL (3.5-10.5)
[2021-03-12 14:06] LABS: Anion Gap 14 mmol/L (10-20); BUN (Urea Nitrogen) 42 mg/dL (8.9-20.6); Calc. Creatinine Clearance 117 mL/min (70-130); Calcium 9.1 mg/dL (7.8-10.44); Carbon Dioxide 25 mmol/L (22-29); Chloride 102 mmol/L (98-107); Glucose 347 mg/dL (70-105); Potassium 5.6 mmol/L (3.5-5.1); Sodium 135 mmol/L (136-145)
[2021-03-12] MEDS ORDERED: Furosemide 40 MG/4 ML VIAL SLOW IVP SCH (14:15)
[2021-03-12] MEDS ORDERED: Insulin Regular 300 UNITS/3 ML VIAL IVP SCH (16:00)
[2021-03-12] MEDS ORDERED: Dextrose 50% Abboject 50 ML SYRINGE SLOW IVP SCH (16:00)
[2021-03-12 19:51] LABS: Anion Gap 14 mmol/L (10-20); BUN (Urea Nitrogen) 43 mg/dL (8.9-20.6); Calc. Creatinine Clearance 114 mL/min (70-130); Calcium 9.4 mg/dL (7.8-10.44); Carbon Dioxide 28 mmol/L (22-29); Chloride 100 mmol/L (98-107); Glucose 283 mg/dL (70-105); Magnesium 2.1 mg/dL (1.6-2.6); Sodium 137 mmol/L (136-145)
[2021-03-12] MEDS ORDERED: Ibuprofen 800 MG TAB PO SCH (20:00)
[2021-03-12] MEDS: clonazePAM 1 MG TAB PO SCH (20:59)
[2021-03-12] MEDS: Heparin 5,000 UNITS/ML VIAL SC SCH (21:00)
[2021-03-12] MEDS: Vancomycin 1.5 GRAM/300 ML BAG 1.5 GM in Premix Bag 1 BAG IVPB SCH (22:40)
[2021-03-12 23:49] LABS: Bilirubin Neg (Negative); Blood, Urine 150 (Negative); Clarity Clear (Clear); Glucose, Urine (Dipstick) 100 mg/dL (Negative); Ketone, Urine Negative (Negative); Leukocyte 25 (Negative); Nitrite Negative (Negative); Protein, Urine (Dipstick) 30 mg/dl (Neg-Trace); Specific Gravity, Urine 1.025 (1.002-1.036); Urobilinogen Normal mg/dL (Less than 2)
[2021-03-12 23:53] LABS: Urine Culture Reflex No No
[2021-03-13 00:26] LABS: Squamous Epithelial 0-3 HPF (0-3)
[2021-03-13 00:27] LABS: Bacteria/HPF None Seen HPF (None Seen)
[2021-03-13] MEDS: HumaLOG 300 UNITS/3 ML VIAL SC PRN ×2 (00:40→08:42)
[2021-03-13] MEDS: Dexmedetomidine In 0.9 % NaCl 100 ML IVPB SCH ×6 (02:00→20:17)
[2021-03-13] MEDS: Cefepime 2 GM in Sodium Chloride 0.9% 100 ML IVPB SCH ×2 (02:47→16:21)
[2021-03-13] MEDS: Acetaminophen 325 MG TAB PO PRN ×2 (02:47→17:16)
[2021-03-13 03:14] LABS: #Monocytes 0.8 10x3/uL (0.0-1.1); #Neutrophils 7.6 10x3/uL (1.5-8.4); %Basophils 0.4 % (0.0-2.0); %Eosinophils 0.1 % (0.0-6.0); %Lymphocytes 17.8 % (18.0-47.0); %Monocytes 7.3 % (0.0-10.0); %Neutrophils 73.6 % (40.0-75.0); Hemoglobin 12.7 g/dL (13.5-17.5); Mean Corpuscular HGB CONC 31.9 g/dL (32.0-36.0); Mean Corpuscular Hemoglobin 28.3 pg (27.0-33.0); Mean Corpuscular Volume 88.6 fl (81.2-95.1); Mean Platelet Volume 10.6 fl (7.4-10.4); Platelet Count 189 10x3/uL (150-450); RBC Distribution Width 15.1 % (11.5-14.5); Red Blood Cell (RBC) Count 4.49 10x6/uL (4.32-5.72); White Blood Cell (WBC) Count 10.3 10x3/uL (3.5-10.5)
[2021-03-13 03:27] LABS: Anion Gap 13 mmol/L (10-20); BUN (Urea Nitrogen) 60 mg/dL (8.9-20.6); Calc. Creatinine Clearance 93 mL/min (70-130); Calcium 8.9 mg/dL (7.8-10.44); Carbon Dioxide 29 mmol/L (22-29); Chloride 100 mmol/L (98-107); Glucose 349 mg/dL (70-105); Potassium 4.1 mmol/L (3.5-5.1); Sodium 138 mmol/L (136-145)
[2021-03-13] MEDS: fentaNYL Citrate-0.9 % NaCl/PF 100 ML IVPB SCH ×2 (04:18→15:20)
[2021-03-13] MEDS: Senokot S 8.6-50 MG TAB PO SCH ×2 (08:41→20:17)
[2021-03-13] MEDS: clonazePAM 1 MG TAB PO SCH ×2 (08:41→20:15)
[2021-03-13] MEDS: Polyethylene Glycol 3350 17 GM Packet PO SCH (08:41)
[2021-03-13] MEDS: oxyCODONE 5 MG TAB PO SCH ×2 (08:41→20:16)
[2021-03-13] MEDS: Aspirin Chewable 81 MG TAB PO SCH (08:41)
[2021-03-13] MEDS: Heparin 5,000 UNITS/ML VIAL SC SCH ×3 (08:42→20:15)
[2021-03-13] MEDS: Famotidine/PF 20 mg/2ml Vial SLOW IVP SCH ×2 (08:42→20:15)
[2021-03-13] MEDS: Dexamethasone 20 MG/5 ML VIAL SLOW IVP SCH (08:42)
[2021-03-13] MEDS: Lantus 1000 UNITS/10 ML VIAL SC SCH (08:43)
[2021-03-13 09:40] LABS: Base Excess (BEa) 1.1 mEq/L (-2.0 to +3.0); CO2 Tension 48.4 mmHg (35.0-45.0); Calcium, Ionized (arterial) 1.17 mmol/L (1.12-1.30); Carboxyhemoglobin (COHb) 0.5 gm% (0.0-3.0); Hemoglobin (Hb) 13.3 g/dL (14.0-18.0); O2 Tension (PaO2), arterial 54.6 mmHg (80.0-100.0); Puncture Site RBA; pH, Arterial 7.37 (7.35-7.45)
[2021-03-13] MEDS: Vancomycin 1.5 GRAM/300 ML BAG 1.5 GM in Premix Bag 1 BAG IVPB SCH ×2 (10:15→22:09)
[2021-03-13] MEDS: INSULIN REGULAR IN 0.9 % NACL 100 UNIT in Premix Bag 1 BAG IVPB SCH ×2 (12:16→18:28)
[2021-03-13 17:56] LABS: Magnesium 2.1 mg/dL (1.6-2.6)
[2021-03-13] MEDS ORDERED: Lantus 1000 UNITS/10 ML VIAL SC SCH (21:00)
[2021-03-14] MEDS: Dexmedetomidine In 0.9 % NaCl 100 ML IVPB SCH ×6 (00:07→21:04)
[2021-03-14] MEDS: Cefepime 2 GM in Sodium Chloride 0.9% 100 ML IVPB SCH ×2 (03:01→15:24)
[2021-03-14] MEDS: fentaNYL Citrate-0.9 % NaCl/PF 100 ML IVPB SCH ×2 (03:01→16:42)
[2021-03-14 05:05] LABS: Anion Gap 12 mmol/L (10-20); BUN (Urea Nitrogen) 43 mg/dL (8.9-20.6); Calc. Creatinine Clearance 168 mL/min (70-130); Calcium 8.7 mg/dL (7.8-10.44); Carbon Dioxide 26 mmol/L (22-29); Chloride 104 mmol/L (98-107); Glucose 224 mg/dL (70-105); Potassium 4.4 mmol/L (3.5-5.1); Sodium 138 mmol/L (136-145)
[2021-03-14] MEDS: Lorazepam 2 MG/ML VIAL SLOW IVP PRN ×2 (05:51→14:30)
[2021-03-14] MEDS: Aspirin Chewable 81 MG TAB PO SCH (09:12)
[2021-03-14] MEDS: clonazePAM 1 MG TAB PO SCH ×2 (09:12→20:33)
[2021-03-14] MEDS: oxyCODONE 5 MG TAB PO SCH ×2 (09:12→20:33)
[2021-03-14] MEDS: Polyethylene Glycol 3350 17 GM Packet PO SCH (09:13)
[2021-03-14] MEDS: Famotidine/PF 20 mg/2ml Vial SLOW IVP SCH ×2 (09:13→20:33)
[2021-03-14] MEDS: Senokot S 8.6-50 MG TAB PO SCH ×2 (09:13→20:32)
[2021-03-14] MEDS: Dexamethasone 20 MG/5 ML VIAL SLOW IVP SCH (09:13)
[2021-03-14] MEDS: Heparin 5,000 UNITS/ML VIAL SC SCH ×3 (09:13→20:32)
[2021-03-14] MEDS: INSULIN REGULAR IN 0.9 % NACL 100 UNIT in Premix Bag 1 BAG IVPB SCH (09:37)
[2021-03-14 09:38] LABS: Actual Bicarbonate (HCO3a) 29.2 mEq/L (22-28); Base Excess (BEa) 5.1 mEq/L (-2.0 to +3.0); CO2 Tension 41.2 mmHg (35.0-45.0); Calcium, Ionized (arterial) 1.18 mmol/L (1.12-1.30); Carboxyhemoglobin (COHb) 0.3 gm% (0.0-3.0); Hemoglobin (Hb) 12.5 g/dL (14.0-18.0); Potassium - ABG Lab 3.8 mmol/L (3.70-5.30); Puncture Site LRA; pH, Arterial 7.47 (7.35-7.45)
[2021-03-14 09:52] LABS: Vancomycin, Trough 9.3 ug/mL
[2021-03-14] MEDS: Vancomycin 1.5 GRAM/300 ML BAG 1.5 GM in Premix Bag 1 BAG IVPB SCH (12:09)
[2021-03-14] MEDS ORDERED: Cefepime 2 GM VIAL ONE (15:15)
[2021-03-14] MEDS ORDERED: Vancomycin 1.5 GRAM/300 ML BAG 1.5 GM in Premix Bag 1 BAG IVPB SCH (21:00)
[2021-03-15] MEDS: Dexmedetomidine In 0.9 % NaCl 100 ML IVPB SCH ×6 (00:46→23:24)
[2021-03-15] MEDS: INSULIN REGULAR IN 0.9 % NACL 100 UNIT in Premix Bag 1 BAG IVPB SCH (00:46)
[2021-03-15] MEDS: fentaNYL Citrate-0.9 % NaCl/PF 100 ML IVPB SCH ×3 (04:00→23:24)
[2021-03-15 04:41] LABS: Anion Gap 12 mmol/L (10-20); BUN (Urea Nitrogen) 35 mg/dL (8.9-20.6); Calc. Creatinine Clearance 202 mL/min (70-130); Calcium 8.8 mg/dL (7.8-10.44); Carbon Dioxide 25 mmol/L (22-29); Chloride 103 mmol/L (98-107); Glucose 213 mg/dL (70-105); Potassium 4.4 mmol/L (3.5-5.1); Sodium 136 mmol/L (136-145)
[2021-03-15 04:43] LABS: Magnesium 1.9 mg/dL (1.6-2.6)
[2021-03-15] MEDS: Vancomycin HCl 1 GM in Sodium Chloride 0.9% 250 ML 250 ML IVPB SCH ×3 (05:23→21:48)
[2021-03-15] MEDS: Cefepime 2 GM in Sodium Chloride 0.9% 100 ML IVPB SCH ×2 (05:23→16:38)
[2021-03-15] MEDS: oxyCODONE 5 MG TAB PO SCH ×2 (08:28→21:49)
[2021-03-15] MEDS: Polyethylene Glycol 3350 17 GM Packet PO SCH (08:29)
[2021-03-15] MEDS: Aspirin Chewable 81 MG TAB PO SCH (08:29)
[2021-03-15] MEDS: clonazePAM 1 MG TAB PO SCH ×2 (08:29→21:49)
[2021-03-15] MEDS: Famotidine/PF 20 mg/2ml Vial SLOW IVP SCH ×2 (08:29→21:48)
[2021-03-15] MEDS: Senokot S 8.6-50 MG TAB PO SCH ×2 (08:29→21:49)
[2021-03-15] MEDS: Heparin 5,000 UNITS/ML VIAL SC SCH ×3 (08:30→21:48)
[2021-03-15] MEDS: Dexamethasone 20 MG/5 ML VIAL SLOW IVP SCH (08:31)
[2021-03-15 10:44] LABS: Actual Bicarbonate (HCO3a) 29.1 mEq/L (22-28); Base Excess (BEa) 4.3 mEq/L (-2.0 to +3.0); CO2 Tension 44.6 mmHg (35.0-45.0); Calcium, Ionized (arterial) 1.12 mmol/L (1.12-1.30); Carboxyhemoglobin (COHb) 0.2 gm% (0.0-3.0); Hemoglobin (Hb) 12.2 g/dL (14.0-18.0); O2 Tension (PaO2), arterial 56.6 mmHg (80.0-100.0); Potassium - ABG Lab 3.5 mmol/L (3.70-5.30); Puncture Site LRA; pH, Arterial 7.43 (7.35-7.45)
[2021-03-15] MEDS: Lorazepam 2 MG/ML VIAL SLOW IVP PRN ×3 (13:58→22:45)
[2021-03-15] MEDS: Furosemide 40 MG/4 ML VIAL SLOW IVP SCH ×2 (13:58→21:48)
[2021-03-15 21:24] LABS: Vancomycin, Trough 13.9 ug/mL
[2021-03-16] MEDS: Dexmedetomidine In 0.9 % NaCl 100 ML IVPB SCH ×6 (03:21→20:29)
[2021-03-16 03:47] LABS: #Basophils 0.1 10x3/uL (0.0-0.2); #Eosinphils 0.1 10x3/uL (0.0-0.5); #Monocytes 0.2 10x3/uL (0.0-1.1); #Neutrophils 4.8 10x3/uL (1.5-8.4); %Eosinophils 1.5 % (0.0-6.0); %Neutrophils 79.3 % (40.0-75.0); Hemoglobin 11.6 g/dL (13.5-17.5); Mean Corpuscular Hemoglobin 28.3 pg (27.0-33.0); Mean Corpuscular Volume 88.5 fl (81.2-95.1); Mean Platelet Volume 10.9 fl (7.4-10.4); Platelet Count 159 10x3/uL (150-450); RBC Distribution Width 15.2 % (11.5-14.5)
[2021-03-16 03:52] LABS: Anion Gap 13 mmol/L (10-20); BUN (Urea Nitrogen) 33 mg/dL (8.9-20.6); Calc. Creatinine Clearance 204 mL/min (70-130); Calcium 8.8 mg/dL (7.8-10.44); Carbon Dioxide 26 mmol/L (22-29); Chloride 102 mmol/L (98-107); Glucose 197 mg/dL (70-105); Potassium 3.7 mmol/L (3.5-5.1); Sodium 137 mmol/L (136-145)
[2021-03-16] MEDS: Lorazepam 2 MG/ML VIAL SLOW IVP PRN ×5 (04:30→22:49)
[2021-03-16] MEDS: Cefepime 2 GM in Sodium Chloride 0.9% 100 ML IVPB SCH ×2 (05:14→16:23)
[2021-03-16] MEDS: Furosemide 40 MG/4 ML VIAL SLOW IVP SCH ×3 (05:15→22:23)
[2021-03-16] MEDS: Vancomycin HCl 1 GM in Sodium Chloride 0.9% 250 ML 250 ML IVPB SCH ×3 (05:15→22:23)
[2021-03-16 07:53] LABS: Actual Bicarbonate (HCO3a) 30.2 mEq/L (22-28); Base Excess (BEa) 5.7 mEq/L (-2.0 to +3.0); CO2 Tension 43.7 mmHg (35.0-45.0); Calcium, Ionized (arterial) 1.15 mmol/L (1.12-1.30); Carboxyhemoglobin (COHb) 0.1 gm% (0.0-3.0); O2 Tension (PaO2), arterial 55.9 mmHg (80.0-100.0); Potassium - ABG Lab 3.8 mmol/L (3.70-5.30); Puncture Site RFA; pH, Arterial 7.46 (7.35-7.45)
[2021-03-16] MEDS: Senokot S 8.6-50 MG TAB PO SCH ×2 (09:01→20:11)
[2021-03-16] MEDS: Aspirin Chewable 81 MG TAB PO SCH (09:01)
[2021-03-16] MEDS: Polyethylene Glycol 3350 17 GM Packet PO SCH (09:01)
[2021-03-16] MEDS: clonazePAM 1 MG TAB PO SCH ×2 (09:02→20:10)
[2021-03-16] MEDS: Famotidine/PF 20 mg/2ml Vial SLOW IVP SCH ×2 (09:02→20:10)
[2021-03-16] MEDS: Heparin 5,000 UNITS/ML VIAL SC SCH ×3 (09:02→20:11)
[2021-03-16] MEDS: Dexamethasone 20 MG/5 ML VIAL SLOW IVP SCH (09:02)
[2021-03-16] MEDS: oxyCODONE 5 MG TAB PO SCH ×2 (09:02→20:11)
[2021-03-16] MEDS: fentaNYL Citrate-0.9 % NaCl/PF 100 ML IVPB SCH ×2 (12:11→20:12)
[2021-03-16 15:23] VITALS: TEMP 98.2
[2021-03-16 22:23] LABS: Vancomycin, Trough 13.6 ug/mL
[2021-03-17] MEDS: Lorazepam 2 MG/ML VIAL SLOW IVP PRN ×4 (02:51→11:41)
[2021-03-17] MEDS: INSULIN REGULAR IN 0.9 % NACL 100 UNIT in Premix Bag 1 BAG IVPB SCH (03:35)
[2021-03-17] MEDS: Cefepime 2 GM in Sodium Chloride 0.9% 100 ML IVPB SCH (04:21)
[2021-03-17 04:51] LABS: Anion Gap 13 mmol/L (10-20); BUN (Urea Nitrogen) 31 mg/dL (8.9-20.6); Calc. Creatinine Clearance 218 mL/min (70-130); Calcium 9.2 mg/dL (7.8-10.44); Carbon Dioxide 30 mmol/L (22-29); Chloride 101 mmol/L (98-107); Glucose 105 mg/dL (70-105); Potassium 3.9 mmol/L (3.5-5.1); Sodium 140 mmol/L (136-145)
[2021-03-17] MEDS: fentaNYL Citrate-0.9 % NaCl/PF 100 ML IVPB SCH (05:09)
[2021-03-17] MEDS: Furosemide 40 MG/4 ML VIAL SLOW IVP SCH (05:22)
[2021-03-17] MEDS ORDERED: VANCOMYCIN 1.25 GM/250 ML BAG 1.25 GM in Premix Bag 1 BAG IVPB SCH (06:00)
[2021-03-17 06:08] VITALS: BMI 34.2
[2021-03-17] MEDS: Dexmedetomidine In 0.9 % NaCl 100 ML IVPB SCH ×2 (06:13→11:04)
[2021-03-17] MEDS: clonazePAM 1 MG TAB PO SCH (08:13)
[2021-03-17] MEDS: Senokot S 8.6-50 MG TAB PO SCH (08:13)
[2021-03-17] MEDS: Polyethylene Glycol 3350 17 GM Packet PO SCH (08:13)
[2021-03-17] MEDS: Aspirin Chewable 81 MG TAB PO SCH (08:13)
[2021-03-17] MEDS: oxyCODONE 5 MG TAB PO SCH (08:13)
[2021-03-17] MEDS: Famotidine/PF 20 mg/2ml Vial SLOW IVP SCH (08:14)
[2021-03-17] MEDS: Heparin 5,000 UNITS/ML VIAL SC SCH (08:14)
[2021-03-17] MEDS: Dexamethasone 20 MG/5 ML VIAL SLOW IVP SCH (08:14)
[2021-03-17 08:25] VITALS: BP 107/73
[2021-03-17] MEDS ORDERED: Lorazepam 2 MG/ML VIAL SLOW IVP PRN (11:03)
[2021-03-17 11:05] LABS: Actual Bicarbonate (HCO3a) 32.2 mEq/L (22-28); Base Excess (BEa) 4.6 mEq/L (-2.0 to +3.0); CO2 Tension 61.4 mmHg (35.0-45.0); Calcium, Ionized (arterial) 1.19 mmol/L (1.12-1.30); Carboxyhemoglobin (COHb) 0.4 gm% (0.0-3.0); Hemoglobin (Hb) 13.3 g/dL (14.0-18.0); O2 Tension (PaO2), arterial 43.4 mmHg (80.0-100.0); Potassium - ABG Lab 3.7 mmol/L (3.70-5.30); Puncture Site RRA; pH, Arterial 7.34 (7.35-7.45)
[2021-03-17] MEDS: Morphine 4 MG/ML VIAL SLOW IVP PRN ×2 (11:48→12:06)
[2021-03-17 13:48] LABS: ALV-art Gradient 388.575 mmHg (0-20)
[2021-03-18 21:12] LABS: CMV DNA-PCR Test Negative (Negative)
== END 2021-03-17 15:41 | disposition expired | DRG 207 ==
LOC: CSHERS 12:08 → CSHIMCU 15:22
PROVIDERS: ADMIT Internal Medicine; ATTEND Internal Medicine
PROC: 0BH17EZ Insertion of Endotracheal Airway into Trachea, Via Natural or Artificial Opening (ICD-10-PCS; principal; 2021-03-01)
PROC: 5A1955Z Respiratory Ventilation, Greater than 96 Consecutive Hours (ICD-10-PCS; 2021-03-01)
PROC: 8E0ZXY6 Isolation (ICD-10-PCS; 2021-03-01)
PROC: 5A09357 Assistance with Respiratory Ventilation, Less than 24 Consecutive Hours, Continuous Positive Airway Pressure (ICD-10-PCS; 2021-03-01)
PROC: XW033E5 Introduction of Remdesivir Anti-infective into Peripheral Vein, Percutaneous Approach, New Technology Group 5 (ICD-10-PCS; 2021-03-01)
PROC: 0D9670Z Drainage of Stomach with Drainage Device, Via Natural or Artificial Opening (ICD-10-PCS; 2021-03-01)
PROC: 02HV33Z Insertion of Infusion Device into Superior Vena Cava, Percutaneous Approach (ICD-10-PCS; 2021-03-01)
PROC: B548ZZA Ultrasonography of Superior Vena Cava, Guidance (ICD-10-PCS; 2021-03-01)
DX: U07.1 COVID-19 (principal); J12.82 Pneumonia due to coronavirus disease 2019; J80 Acute respiratory distress syndrome; N17.9 Acute kidney failure, unspecified; E87.1 Hypo-osmolality and hyponatremia; N39.0 Urinary tract infection, site not specified; J95.851 Ventilator associated pneumonia; Z66 Do not resuscitate; Z51.5 Encounter for palliative care; E78.5 Hyperlipidemia, unspecified; I10 Essential (primary) hypertension; Z79.4 Long term (current) use of insulin; Z79.84 Long term (current) use of oral hypoglycemic drugs; T38.3X6A Underdosing of insulin and oral hypoglycemic [antidiabetic] drugs, initial encounter; E11.65 Type 2 diabetes mellitus with hyperglycemia; E66.9 Obesity, unspecified; Z68.34 Body mass index [BMI] 34.0-34.9, adult; Z90.2 Acquired absence of lung [part of]; Z79.899 Other long term (current) drug therapy; W26.0XXS Contact with knife, sequela; Z79.82 Long term (current) use of aspirin; B95.61 Methicillin susceptible Staphylococcus aureus infection as the cause of diseases classified elsewhere; K59.00 Constipation, unspecified; L89.152 Pressure ulcer of sacral region, stage 2; Z78.1 Physical restraint status
CPT/HCPCS: 31500; 36415; 36416; 36556; 36600; 51702; 71045; 80048; 80053; 80202; 81001; 82010; 82728; 82805; 83605; 83735; 83880; 84145; 85025; 85027; 85379; 86140; 87040; 87070; 87077; 87081; 87086; 87186; 87205; 87449; 87497; 93005; 93010; 94002; 94003; 94640; 94660; 94760; 96365; 96366; 96374; J0692; J1100; J1644; J1650; J1815; J1885; J1940; J2060; J2248; J2250; J2270; J2543; J2704; J3370; J3490; J7050; J7620; M0249; Q0249; S0028; U0002